=== PATIENT | female | born 1965 | race Caucasian/White ===

== ENCOUNTER 2016-06-06 10:14 | Outpatient (RCR) | payer BC ==
[~2016-06-06 10:14] MED LIST: ACYC200C PO; ASCO500C14; BPR150TCR PO; BREWERS YEAST; CALC-80 PO; COLON HEALTH PO; CTLP20T; GINK60CA13; LVT.1T; METO25TA PO; MULT-608; NITR100C10 PO; OMEG1CAP51 PO; VITA150T; VITAMIN B-6; [UNRECOGNIZED DRUG - REMARK]
--- NOTE | 2016-06-14 09:20 | ECHOCARDIOGRAPHY REPORT ---
PROCEDURE PHYSICIAN: RUSSELL CROOKS DATE OF PROCEDURE: 06/06/2016 TWO DIMENSIONAL ECHOCARDIOGRAM REPORT PRIMARY PHYSICIAN: OTHER PHYSICIAN: REFERRING PHYSICIAN: Dr. Maxwell Josue ORDERING PHYSICIAN: INDICATION FOR THE PROCEDURE: Chest pain MEASUREMENTS DERIVED VALUES LV DIAMETER (LAX) NORMALS NORMALS Diastolic 4.6 (3.6-5.2) Eject. Fract. 60% (60%+/-6%) Systolic (2.3-3.9) Diastolic Vol. % Shortening (0.22-0.42) Systolic Vol. Aortic Root IVS THICKNESS Diastolic 0.8 (0.6-1.1) LVPW THICKNESS Diastolic 0.8 (0.6-1.1) LA DIAMETER Systolic 3. (2.1-3.7) FINDINGS: 1. Technical quality is good. 2. The left ventricle is normal in size with normal contractility. Systolic function appeared to be normal. Estimated ejection fraction 60%. 3. The left atrium is normal in size. No clot or thrombus were seen within the left atrium. 4. The right atrium and right ventricle are normal in size. No clot or thrombus were seen within the right side. 5. Mitral valve is normal in morphology with mild mitral regurgitation noted by color Doppler flow. No mitral valve prolapse. No mitral valve stenosis. 6. Aortic valve is trileaflet with normal opening and closing pattern. No significant aortic stenosis or regurgitation was seen. 7. Tricuspid valve is normal in morphology with mild tricuspid regurgitation noted by color Doppler flow. Doppler across tricuspid valve estimated pulmonary artery pressure of 24+ right atrial pressure. 8. Pulmonic valve is functioning normally. 9. No pericardial effusion. CONCLUSION: 1. Normal left ventricular size and systolic function. Estimated ejection fraction 60%. 2. Mild mitral and tricuspid regurgitation. 3. Estimated pulmonary artery pressure of 30 mmHg. Job ID: [id number] Dictated Date: 06/13/2016 17:36:27 Signalman Date: 06/14/2016 09:16:22 / erika
== END 2016-09-04 | disposition home or self-care (01) ==
LOC: CARD 10:14
PROVIDERS: ATTEND Physician Assistant
DX: R07.89 Other chest pain (principal); I10 Essential (primary) hypertension; E78.2 Mixed hyperlipidemia; F41.9 Anxiety disorder, unspecified
CPT/HCPCS: 93225; 93226; 93306

== ENCOUNTER → 2019-04-06 | Outpatient (CLI) | payer BC | LOC: CARD 09:41 | PROVIDERS: ATTEND Internal Medicine Cardiovascular Disease | DX: I10 Essential (primary) hypertension (principal); R07.9 Chest pain, unspecified; R00.2 Palpitations | CPT/HCPCS: 93351 ==

== ENCOUNTER 2023-04-01 14:26 | Outpatient (CLI) | payer BC | END 2023-04-01 14:50 | LOC: SLEEP 14:26 | PROVIDERS: ATTEND Otolaryngology Otolaryngology/Facial Plastic Surgery | DX: G47.33 Obstructive sleep apnea (adult) (pediatric) (principal); R06.83 Snoring | CPT/HCPCS: G0399 ==